=== PATIENT | male | born 1995 | race African-American/Black ===

== ENCOUNTER 2020-11-27 20:35 | Inpatient (IN) ==
[2020-11-27] MEDS ORDERED: SODIUM CHLORIDE 0.9% 1,000 ML IV STA (21:16)
[2020-11-27] MEDS ORDERED: PANTOPRAZOLE 40 MG VIAL IV STA (21:16)
[2020-11-27] MEDS ORDERED: ONDANSETRON 4 MG/2 ML VIAL IV STA (21:16)
[2020-11-27 22:29] LABS: Basophils % 0.1 % (0.0-0.8); Eosinophils % 0.1 % (0.00-10.9); Hematocrit 24.8 VOL% (42.0-52.0); Hemoglobin 7.8 GM/DL (14.0-18.0); Immature Granulocytes Absolute 1.82 #; Lymphocytes % 9.1 % (21.2-54.2); Mean Corpuscular HGB Conc 31.5 GM/DL (32-36); Mean Platelet Volume 9.2 FL (9.6-12.0); Monocytes % 8.1 % (1.7-12.7); Neutrophils % 65.6 % (38.7-73.9); Platelet Count 831 T/CUMM (130-400); Red Blood Count 3.22 MC/CUMM (3.8-5.5); Red Cell Distribution Width 15.7 % (9.3-17.3); White Blood Count 10.7 T/CUMM (4-12)
[2020-11-27 22:45] LABS: Alanine Aminotransferase 14 U/L (16-61); Albumin 1.6 G/DL (3.4-5.0); Alkaline Phosphatase 72 U/L (45-117); Amylase 72 U/L (25-115); Aspartate Amino Transferase 19 U/L (0-37); Bilirubin,Total < 0.39 MG/DL (0.2-1.0); Blood Urea Nitrogen 66 MG/DL (7-18); Calcium 7.8 MG/DL (8.5-10.1); Carbon Dioxide 24 MMOL/L (21-32); Glucose 102 MG/DL (74-106); Osmolality,Calculated 273.2 MOS/KG (273-304); Potassium 5.1 MMOL/L (3.5-5.1); Sodium 127 MMOL/L (136-145); Total Protein 6.7 G/DL (6.4-8.3); Troponin I < 0.015 NG/ML (0.00-0.045)
[2020-11-27 22:47] LABS: Estimated Glom Filtration Rate 0 ML/MIN
[2020-11-27 23:10] LABS: Band Neutrophils 2 % (0-10); Lymphocytes 6 % (20-55); Metamyelocytes 6 %; Segmented Neutrophils 76 % (50-85); Total Cells Counted 100
[2020-11-27 23:11] LABS: Hypochromasia 2+
[2020-11-27 23:12] LABS: Platelet Estimate Increased; Target Cells Few
[2020-11-28] MEDS ORDERED: DEXTROSE 50% 25 GM/50 ML VIAL IV PRN (01:12)
[2020-11-28] MEDS ORDERED: GLUCAGON 1 MG VIAL IM PRN (01:12)
[2020-11-28] MEDS ORDERED: ONDANSETRON 4 MG/2 ML VIAL IV PRN (01:12)
[2020-11-28] MEDS ORDERED: PROMETHAZINE 25 MG/1 ML VIAL IV PRN (01:12)
[2020-11-28] MEDS ORDERED: SODIUM CHLORIDE 0.9% 1,000 ML IV PRN (01:28)
[2020-11-28] MEDS ORDERED: PROMETHAZINE INJ 12.5 MG in SODIUM CHLORIDE 0.9% 50 ML IV PRN (01:33)
[2020-11-28] MEDS ORDERED: MAGNESIUM SULF RIDER 4 GM in PREMIX 1 EACH IV PRN (01:35)
[2020-11-28] MEDS: SODIUM CHLORIDE 0.9% 1,000 ML IV SCH ×3 (01:52→19:40)
[2020-11-28 02:36] LABS: Bacteria,Urine Occasional /HPF (Few); Bilirubin,Urine Negative (Negative); Blood, Urine Negative (Negative); Glucose,Urine (UA) Negative (Negative); Ketones,Urine Negative (Negative); Mucus,Urine Occasional /LPF (Occasional); Nitrite,Urine Negative (Negative); Protein,Urine Negative; RBC,Urine 1 /HPF (0-4); Squamous Epithelial Cell,Urine Occasional /HPF (0-10); Urine Appearance CLEAR (Clear); Urine Color Straw (Yellow); Urine Specific Gravity 1.009 (1.001-1.035); Urine Urobilinogen < 2.0 EU/DL (0.2-1.0); WBC,Urine <1 /HPF (0-6)
[2020-11-28 09:30] LABS: Hemoglobin A1 (Alkaline) 97.6 % (96.5-98.5); Hemoglobin A2 (Alkaline) 2.4 % (1.5-3.5)
[2020-11-28] MEDS: PANTOPRAZOLE 40 MG VIAL IV SCH (09:52)
[2020-11-28 11:05] LABS: Basophils % 0.2 % (0.0-0.8); Hematocrit 32.6 VOL% (42.0-52.0); Immature Granulocytes % 13.8 %; Immature Granulocytes Absolute 1.38 #; Lymphocytes # 1.3 10*3/uL (1.4-4.0); Lymphocytes % 13.2 % (21.2-54.2); Mean Corpuscular HGB Conc 32.2 GM/DL (32-36); Mean Corpuscular Volume 79.3 FL (87-102); Mean Platelet Volume 8.9 FL (9.6-12.0); Monocytes % 6.5 % (1.7-12.7); Neutrophils % 66.3 % (38.7-73.9); Platelet Count 747 T/CUMM (130-400); Red Cell Distribution Width 16.2 % (9.3-17.3)
[2020-11-28 11:07] LABS: Red Blood Count 4.11 MC/CUMM (3.8-5.5)
[2020-11-28 11:08] LABS: Hemoglobin 10.5 GM/DL (14.0-18.0)
[2020-11-28 11:18] LABS: Band Neutrophils 5 % (0-10); Lymphocytes 16 % (20-55); Platelet Estimate Increased; Segmented Neutrophils 69 % (50-85); Total Cells Counted 100
[2020-11-28 11:19] LABS: Hypochromasia 1+; Microcytosis 1+; Ovalocytes Slight
[2020-11-28 11:31] LABS: % Iron Saturation 17.4 % (18-50); Ferritin 1560.1 ng/ml (26-388)
[2020-11-28 11:46] LABS: Folate 5.9 NG/ML (5.38-24.0); Vitamin B12 1599 PG/ML (211-911)
[2020-11-28 11:51] LABS: Albumin 1.5 G/DL (3.4-5.0); Bilirubin,Total 0.4 MG/DL (0.2-1.0); Calcium 8.2 MG/DL (8.5-10.1); Osmolality,Calculated 267.9 MOS/KG (273-304); Potassium 4.7 MMOL/L (3.5-5.1); Thyroid Stimulating Hormone 1.02 uIU/ml (0.358-3.74); Total Protein 6.6 G/DL (6.4-8.3)
[2020-11-28 12:12] LABS: Sedimentation Rate-Westergren 58 MM/HR (0-15)
[2020-11-28] MEDS ORDERED: NYSTATIN 500,000 UNIT/5 ML UDCUP SWISH/SWAL STA (14:34)
[2020-11-28] MEDS ORDERED: ESCITALOPRAM 10 MG TABLET PO SCH (21:00)
[2020-11-29] MEDS: SODIUM CHLORIDE 0.9% 1,000 ML IV SCH ×4 (01:20→19:33)
[2020-11-29 05:37] LABS: Basophils % 0.1 % (0.0-0.8); Hemoglobin 9.6 GM/DL (14.0-18.0); Immature Granulocytes % 18.8 %; Immature Granulocytes Absolute 1.36 #; Lymphocytes # 0.9 10*3/uL (1.4-4.0); Lymphocytes % 12.7 % (21.2-54.2); Mean Corpuscular HGB Conc 33.1 GM/DL (32-36); Mean Corpuscular Volume 76.5 FL (87-102); Monocytes % 8.1 % (1.7-12.7); Neutrophils % 60.3 % (38.7-73.9); Platelet Count 662 T/CUMM (130-400); Red Blood Count 3.79 MC/CUMM (3.8-5.5); Red Cell Distribution Width 16.2 % (9.3-17.3); White Blood Count 7.2 T/CUMM (4-12)
[2020-11-29 06:02] LABS: Band Neutrophils 2 % (0-10); Hypochromasia 2+; Lymphocytes 14 % (20-55); Metamyelocytes 2 %; Microcytosis 1+; Myelocytes 2 %; Segmented Neutrophils 71 % (50-85); Target Cells Slight; Total Cells Counted 100
[2020-11-29 06:03] LABS: Platelet Estimate Increased
[2020-11-29 06:10] LABS: Albumin 1.3 G/DL (3.4-5.0); Bilirubin,Total 0.4 MG/DL (0.2-1.0); Calcium 8.1 MG/DL (8.5-10.1); Osmolality,Calculated 271.2 MOS/KG (273-304); Potassium 4.1 MMOL/L (3.5-5.1)
[2020-11-29] MEDS: NYSTATIN 500,000 UNIT/5 ML UDCUP SWISH/SWAL SCH ×4 (09:11→20:23)
[2020-11-29] MEDS: PANTOPRAZOLE 40 MG VIAL IV SCH (09:15)
[2020-11-29] MEDS: MAGNESIUM SULF RIDER 2 GM in PREMIX 1 EACH IV PRN (09:16)
[2020-11-29] MEDS ORDERED: FLUCONAZOLE INJ 200 MG in PREMIX 1 EACH IV ONE (09:30)
[2020-11-29] MEDS: DESITIN 4OZ/NYSTATIN 15 GRAM MIXTURE PASTE TOP SCH ×2 (14:52→20:22)
[2020-11-29 19:11] LABS: CDT Result Negative (Negative); CDT Specimen Source STOOL
[2020-11-30] MEDS: SODIUM CHLORIDE 0.9% 1,000 ML IV SCH ×3 (02:17→22:10)
[2020-11-30 07:00] LABS: Alanine Aminotransferase 9 U/L (16-61); Albumin 1.3 G/DL (3.4-5.0); Alkaline Phosphatase 65 U/L (45-117); Aspartate Amino Transferase 15 U/L (0-37); Bilirubin,Total < 0.39 MG/DL (0.2-1.0); Blood Urea Nitrogen 18 MG/DL (7-18); Carbon Dioxide 18 MMOL/L (21-32); Estimated Glom Filtration Rate 108 ML/MIN; Glucose 81 MG/DL (74-106); Osmolality,Calculated 275.7 MOS/KG (273-304); Sodium 138 MMOL/L (136-145)
[2020-11-30 07:07] LABS: Basophils % 0.3 % (0.0-0.8); Hematocrit 31.7 VOL% (42.0-52.0); Hemoglobin 10.1 GM/DL (14.0-18.0); Immature Granulocytes % 7.3 %; Immature Granulocytes Absolute 0.63 #; Lymphocytes # 1.3 10*3/uL (1.4-4.0); Lymphocytes % 15.1 % (21.2-54.2); Mean Corpuscular HGB Conc 31.9 GM/DL (32-36); Mean Corpuscular Volume 79.6 FL (87-102); Mean Platelet Volume 9.2 FL (9.6-12.0); Monocytes % 8.1 % (1.7-12.7); Neutrophils % 69.2 % (38.7-73.9); Platelet Count 726 T/CUMM (130-400); Red Blood Count 3.98 MC/CUMM (3.8-5.5); Red Cell Distribution Width 17.2 % (9.3-17.3); White Blood Count 8.7 T/CUMM (4-12)
[2020-11-30 07:33] LABS: Band Neutrophils 19 % (0-10); Lymphocytes 11 % (20-55); Metamyelocytes 2 %; Platelet Estimate Increased; Segmented Neutrophils 55 % (50-85); Smudge Cells 1+; Total Cells Counted 100
[2020-11-30 07:34] LABS: Anisocytosis 1+; Burr Cells Few; Target Cells Few
[2020-11-30] MEDS: PANTOPRAZOLE 40 MG VIAL IV SCH (10:32)
[2020-11-30] MEDS: NYSTATIN 500,000 UNIT/5 ML UDCUP SWISH/SWAL SCH ×4 (10:38→21:26)
[2020-11-30] MEDS: FLUCONAZOLE INJ 100 MG in IV BAG 1 EACH IV SCH (10:39)
[2020-11-30] MEDS: DESITIN 4OZ/NYSTATIN 15 GRAM MIXTURE PASTE TOP SCH ×2 (10:40→21:29)
[2020-11-30] MEDS: MAGNESIUM SULF RIDER 2 GM in PREMIX 1 EACH IV PRN (12:03)
[2020-11-30 20:26] LABS: % CD4 (T Cells) 3 % (32-64); % CD8 (T Cells) 85 % (18-40); 4/8 Ratio 0 (>=0.9)
[2020-12-01 06:13] LABS: Basophils % 0.3 % (0.0-0.8); Hematocrit 28.2 VOL% (42.0-52.0); Hemoglobin 9.3 GM/DL (14.0-18.0); Immature Granulocytes Absolute 0.47 #; Lymphocytes # 1.3 10*3/uL (1.4-4.0); Mean Corpuscular Volume 78.3 FL (87-102); Mean Platelet Volume 8.9 FL (9.6-12.0); Monocytes % 8.2 % (1.7-12.7); Neutrophils % 65.5 % (38.7-73.9); Platelet Count 574 T/CUMM (130-400); Red Cell Distribution Width 17.2 % (9.3-17.3); White Blood Count 6.7 T/CUMM (4-12)
[2020-12-01] MEDS: SODIUM CHLORIDE 0.9% 1,000 ML IV SCH ×3 (06:42→21:00)
[2020-12-01 07:56] LABS: Alanine Aminotransferase 9 U/L (16-61); Albumin 1.2 G/DL (3.4-5.0); Alkaline Phosphatase 57 U/L (45-117); Aspartate Amino Transferase 15 U/L (0-37); Bilirubin,Total < 0.39 MG/DL (0.2-1.0); Blood Urea Nitrogen 14 MG/DL (7-18); Calcium 7.5 MG/DL (8.5-10.1); Carbon Dioxide 18 MMOL/L (21-32); Estimated Glom Filtration Rate 107 ML/MIN; Glucose 89 MG/DL (74-106); Osmolality,Calculated 276.5 MOS/KG (273-304); Sodium 139 MMOL/L (136-145); Total Protein 5.3 G/DL (6.4-8.3)
[2020-12-01] MEDS ORDERED: AZITHROMYCIN 250 MG TABLET PO ONE (08:26)
[2020-12-01 08:39] LABS: Band Neutrophils 10 % (0-10); Lymphocytes 15 % (20-55); Metamyelocytes 10 %; Platelet Estimate Increased; Segmented Neutrophils 60 % (50-85); Total Cells Counted 100
[2020-12-01 08:40] LABS: Anisocytosis 1+; Hypochromasia 1+; Macrocytosis Slight; Microcytosis 1+; Polychromasia 2+
[2020-12-01] MEDS: FLUCONAZOLE INJ 100 MG in IV BAG 1 EACH IV SCH (08:44)
[2020-12-01] MEDS: PANTOPRAZOLE 40 MG VIAL IV SCH (08:44)
[2020-12-01] MEDS: NYSTATIN 500,000 UNIT/5 ML UDCUP SWISH/SWAL SCH ×4 (08:44→21:22)
[2020-12-01] MEDS: DESITIN 4OZ/NYSTATIN 15 GRAM MIXTURE PASTE TOP SCH ×2 (08:47→21:25)
[2020-12-01] MEDS: SULFAMETHOX/TRIMETHOPRIM 800-160 MG TABLET PO SCH ×2 (09:43→21:21)
[2020-12-01] MEDS ORDERED: MAGNESIUM SULF RIDER 4 GM in PREMIX 1 EACH IV ONE (11:00)
[2020-12-01 15:06] LABS: % CD4 (T Cells) 3 % (32-64); % CD8 (T Cells) 84 % (18-40); 4/8 Ratio 0 (>=0.9)
[2020-12-02 06:36] LABS: Basophils % 0.1 % (0.0-0.8); Eosinophils % 0.1 % (0.00-10.9); Hematocrit 28.9 VOL% (42.0-52.0); Hemoglobin 9.3 GM/DL (14.0-18.0); Immature Granulocytes % 8.4 %; Immature Granulocytes Absolute 0.86 #; Lymphocytes # 1.6 10*3/uL (1.4-4.0); Lymphocytes % 15.8 % (21.2-54.2); Mean Corpuscular HGB Conc 32.2 GM/DL (32-36); Mean Corpuscular Volume 79.2 FL (87-102); Mean Platelet Volume 9.2 FL (9.6-12.0); Monocytes % 6.2 % (1.7-12.7); Neutrophils % 69.4 % (38.7-73.9); Platelet Count 593 T/CUMM (130-400); Red Blood Count 3.65 MC/CUMM (3.8-5.5); Red Cell Distribution Width 17.6 % (9.3-17.3); White Blood Count 10.2 T/CUMM (4-12)
[2020-12-02 06:56] LABS: Calcium 7.4 MG/DL (8.5-10.1); Osmolality,Calculated 268.1 MOS/KG (273-304)
[2020-12-02 08:58] LABS: Anisocytosis 1+; Band Neutrophils 8 % (0-10); Hypochromasia Slight; Lymphocytes 11 % (20-55); Macrocytosis 1+; Metamyelocytes 4 %; Platelet Estimate Increased; Segmented Neutrophils 69 % (50-85); Target Cells 2+; Total Cells Counted 100
[2020-12-02] MEDS: PANTOPRAZOLE 40 MG VIAL IV SCH (09:12)
[2020-12-02] MEDS: SULFAMETHOX/TRIMETHOPRIM 800-160 MG TABLET PO SCH ×2 (09:12→20:31)
[2020-12-02] MEDS: NYSTATIN 500,000 UNIT/5 ML UDCUP SWISH/SWAL SCH ×4 (09:13→20:31)
[2020-12-02] MEDS: DESITIN 4OZ/NYSTATIN 15 GRAM MIXTURE PASTE TOP SCH ×2 (09:17→20:31)
[2020-12-02] MEDS: FLUCONAZOLE INJ 100 MG in IV BAG 1 EACH IV SCH (10:04)
[2020-12-02] MEDS ORDERED: MAGNESIUM SULF RIDER 4 GM in PREMIX 1 EACH IV ONE (10:59)
[2020-12-02] MEDS: SODIUM CHLORIDE 0.9% 1,000 ML IV SCH (11:12)
[2020-12-02] MEDS ORDERED: BISACODYL 5 MG TABLET PO ONE (12:00)
[2020-12-02] MEDS: SODIUM BICARB INJ 50 MEQ in SODIUM CHLORIDE 0.45% 1,000 ML IV SCH ×2 (17:33→23:45)
[2020-12-02] MEDS ORDERED: POLYETHYLENE GLYCOL POWDER 255 GM BOTTLE PO ONE (18:00)
[2020-12-02] MEDS: MAGNESIUM SULF RIDER 2 GM in PREMIX 1 EACH IV PRN (21:43)
[2020-12-03 06:15] LABS: Basophils % 0.2 % (0.0-0.8); Eosinophils % 0.1 % (0.00-10.9); Hematocrit 29.1 VOL% (42.0-52.0); Hemoglobin 9.5 GM/DL (14.0-18.0); Immature Granulocytes Absolute 0.73 #; Lymphocytes # 2.1 10*3/uL (1.4-4.0); Lymphocytes % 23.3 % (21.2-54.2); Mean Corpuscular HGB Conc 32.6 GM/DL (32-36); Neutrophils % 62.4 % (38.7-73.9); Platelet Count 575 T/CUMM (130-400); Red Blood Count 3.73 MC/CUMM (3.8-5.5); Red Cell Distribution Width 17.4 % (9.3-17.3); White Blood Count 9.2 T/CUMM (4-12)
[2020-12-03] MEDS: SODIUM BICARB INJ 50 MEQ in SODIUM CHLORIDE 0.45% 1,000 ML IV SCH ×2 (06:30→14:26)
[2020-12-03 06:38] LABS: Alanine Aminotransferase < 9 U/L (16-61); Albumin 1.2 G/DL (3.4-5.0); Alkaline Phosphatase 59 U/L (45-117); Aspartate Amino Transferase 16 U/L (0-37); Blood Urea Nitrogen 11 MG/DL (7-18); Calcium 7.4 MG/DL (8.5-10.1); Carbon Dioxide 20 MMOL/L (21-32); Estimated Glom Filtration Rate 118 ML/MIN; Glucose 79 MG/DL (74-106); Osmolality,Calculated 259.7 MOS/KG (273-304); Potassium 4.2 MMOL/L (3.5-5.1); Sodium 131 MMOL/L (136-145); Total Protein 5.6 G/DL (6.4-8.3)
[2020-12-03 06:39] LABS: Band Neutrophils 1 % (0-10); Lymphocytes 17 % (20-55); Platelet Estimate Increased; Segmented Neutrophils 74 % (50-85); Total Cells Counted 100
[2020-12-03 06:40] LABS: Hypochromasia 1+; Microcytosis 1+
[2020-12-03] MEDS: SULFAMETHOX/TRIMETHOPRIM 800-160 MG TABLET PO SCH (08:06)
[2020-12-03] MEDS: NYSTATIN 500,000 UNIT/5 ML UDCUP SWISH/SWAL SCH ×3 (08:06→16:02)
[2020-12-03] MEDS: FLUCONAZOLE INJ 100 MG in IV BAG 1 EACH IV SCH (09:00)
[2020-12-03] MEDS: PANTOPRAZOLE 40 MG VIAL IV SCH (09:00)
[2020-12-03] MEDS: DESITIN 4OZ/NYSTATIN 15 GRAM MIXTURE PASTE TOP SCH (09:00)
[2020-12-03] MEDS ORDERED: LACTATED RINGERS 1,000 ML IV SCH (13:00)
[2020-12-03 13:17] LABS: INR 1.2; PT Patient Result 12.9 SECS (9.8-11.9)
[2020-12-03] MEDS ORDERED: LIDOCAINE 2% 5 ML VIAL ONE (15:09)
[2020-12-03] MEDS ORDERED: propofoL 200 MG/20 ML VIAL IV ONE (15:09)
[2020-12-03] MEDS ORDERED: POLYETHYLENE GLYCOL POWDER 255 GM BOTTLE PO ONE (15:35)
[2020-12-03] MEDS ORDERED: BISACODYL 5 MG TABLET PO ONE (15:35)
[2020-12-03 15:42] VITALS: BP 133/071
== END 2020-12-03 16:53 | disposition left against medical advice (07) | DRG 892 ==
LOC: EDUNIT# → EDBD → N.ED 20:35 → N.EDINP 11-28 01:10 → SUATTDRO 11-28 01:10 → N.TELEN 11-28 16:23
PROVIDERS: ADMIT Family Medicine; ATTEND Internal Medicine